=== PATIENT | female | born 1975 | race Two or more races ===

== ENCOUNTER 2021-06-06 16:46 | Emergency (ER) | payer MEDICAID, OTHER ==
[~2021-06-06] VITALS: Ht 162.6 cm; Wt 56.7 kg
[2021-06-06 19:51] VITALS: BP 116/79
[2021-06-06] MEDS ORDERED: levETIRAcetam 500 MG TAB PO ONE (20:00)
== END 2021-06-06 20:48 | disposition home or self-care (01) ==
LOC: EDBD 16:46 → ER 16:46
DX: R56.9 Unspecified convulsions (principal); F20.9 Schizophrenia, unspecified; Z76.0 Encounter for issue of repeat prescription